=== PATIENT | male | born 1940 | race Caucasian/White ===

== ENCOUNTER → 2017-12-15 | Outpatient (CLI) | payer OTHER ==
[~2017-12-15] MED LIST: B Complete1 EACH PO; GLIP10 PO; HYDCHL25 PO; LISI20 PO; METF850 PO; PIOG30 PO; SIMV80 PO; TESTOSTERONE GEL
== END ==
LOC: LAB SHORT 13:44 → PLD 13:44
DX: D48.5 Neoplasm of uncertain behavior of skin (principal)
CPT/HCPCS: 88305

== ENCOUNTER → 2017-12-23 | Outpatient (CLI) | payer OTHER | LOC: PLD 08:15 → LAB SHORT 08:15 | DX: D04.62 Carcinoma in situ of skin of left upper limb, including shoulder (principal) | CPT/HCPCS: 88305 ==

== ENCOUNTER → 2018-01-01 | Outpatient (CLI) | payer OTHER ==
[2018-01-01 13:51] LABS: Source, Urine Clean Catch
[2018-01-01 15:49] LABS: Appearance, Urine Clear (Clear); Bilirubin, Urine Neg (Neg); Blood, Urine 1+ (Neg); Color, Urine Yellow (P-Yellow); Glucose Qualitative, Urine Neg (Neg); Ketones, Urine Neg (Neg); Leukocyte Esterase, Urine Neg (Neg); Nitrite, Urine Neg (Neg); Protein, Urine Neg (Neg); Urobilinogen, Urine NORM (Normal)
[2018-01-01 16:41] LABS: Bacteria Not Seen /hpf; Red Blood Cells, Urine 0-2 /hpf (0-2); Squamous Epithelial Cells Rare /hpf (Few); White Blood Cells, Urine 0-2 /hpf (0-5)
== END | disposition home or self-care (01) ==
LOC: LAB SHORT 13:48 → LAB 13:48
PROVIDERS: Physician Assistant Medical
DX: N39.0 Urinary tract infection, site not specified (principal)
CPT/HCPCS: 81001

== ENCOUNTER → 2018-11-11 | Outpatient (CLI) | payer MEDICARE | END | disposition home or self-care (01) | LOC: LAB SHORT 15:18 → PLD 15:18 | DX: L30.9 Dermatitis, unspecified (principal) | CPT/HCPCS: 88305 ==

== ENCOUNTER 2023-08-21 15:13 | Emergency (ER) | payer OTHER ==
[~2023-08-21] VITALS: Ht 177.8 cm; Wt 104.3 kg
[2023-08-21] MEDS ORDERED: KLOR-CON 1010 ME9 PO (15:23)
[2023-08-21 20:14] VITALS: BP 123/69
== END 2023-08-21 20:36 | disposition home or self-care (01) ==
LOC: ER 15:13
DX: M51.26 Other intervertebral disc displacement, lumbar region (principal); I10 Essential (primary) hypertension; E11.9 Type 2 diabetes mellitus without complications; Z79.899 Other long term (current) drug therapy; Z79.84 Long term (current) use of oral hypoglycemic drugs; R20.2 Paresthesia of skin; M16.12 Unilateral primary osteoarthritis, left hip; M47.816 Spondylosis without myelopathy or radiculopathy, lumbar region; M51.36 Other intervertebral disc degeneration, lumbar region; M51.37 Other intervertebral disc degeneration, lumbosacral region
CPT/HCPCS: 72100; 72158; 73502; 99284-25; A9579